=== PATIENT | female | born 1990 | race Caucasian/White ===

== ENCOUNTER 2016-06-13 09:39 | Inpatient (IN) | payer OTHER, MEDICAID ==
[2016-06-13] VITALS (10 sets, daily range): BP systolic 103–119; RESP 18–20; TEMP 97.9–98.5; Ht 165.1 cm; Wt 83.9 kg
[~2016-06-13] VITALS: Ht 165.1 cm; Wt 83.9 kg
[2016-06-13] MEDS ORDERED: LIDOCAINE 2% 5 ML IV ONE (09:51)
[2016-06-13] MEDS: LACT RINGERS 1,000 ML IV SCH ×2 (10:25→11:59)
[2016-06-13] MEDS ORDERED: FENTANYL 100 MCG/2 ML AMP ONE (10:36)
[2016-06-13] MEDS ORDERED: ROPIV/FENT 0.2%-2MCG/ML 100 ML EPIDURAL ONE (10:36)
[2016-06-13] MEDS ORDERED: LIDOCAINE 1% 30 ML PF ONE (10:38)
[2016-06-13] MEDS ORDERED: OXYTOCIN 15 UNITS/250 ML NS 500 ML IV ONE (10:39)
[2016-06-13] MEDS ORDERED: FAMOTIDINE 20 MG TAB PO PRN (10:45)
[2016-06-13] MEDS ORDERED: PROMETHAZINE 25 MG/ML VIAL IV PRN (10:45)
[2016-06-13] MEDS ORDERED: TERBUTALINE 1 MG/ML VIAL SUBQ PRN (10:45)
[2016-06-13] MEDS ORDERED: ONDANSETRON 4 MG VIAL IV PRN (10:45)
[2016-06-13] MEDS ORDERED: OXYTOCIN 15 UNITS/250 ML NS 250 ML IV SCH (10:45)
[2016-06-13] MEDS ORDERED: LIDOCAINE 1% 30 ML PF INFILTRATE ONE (10:45)
[2016-06-13] MEDS ORDERED: ALU/MAG/SIM 30 ML UDC PO PRN (10:45)
[2016-06-13] MEDS ORDERED: METOCLOPRAMIDE 10 MG/2 ML VIAL IV PUSH PRN (10:45)
[2016-06-13] MEDS ORDERED: MORPHINE 5 MG/1 ML VIAL IV PRN (10:45)
[2016-06-13] MEDS ORDERED: FAMOTIDINE 20 MG INJ IV PRN (10:45)
[2016-06-13] MEDS ORDERED: LIDOCAINE 1% BUFFERED 1 ML SYR INTRADERM PRN (10:45)
[2016-06-13] MEDS ORDERED: PHARMACY TO DOSE GENTAMICIN IV PRN (10:50)
[2016-06-13] MEDS ORDERED: CLINDAMYCIN 900 MG in DEXTROSE 5% 50 ML IV PRN (10:50)
[2016-06-13] MEDS ORDERED: SODIUM CHLORIDE 0.9% IV PRN (11:30)
[2016-06-13] MEDS ORDERED: GENTAMICIN IV PRN (11:30)
[2016-06-13] MEDS ORDERED: FENTANYL 100 MCG/2 ML AMP EPIDURAL ONE (11:45)
[2016-06-13] MEDS ORDERED: LACT RINGERS 500 ML IV PRN (11:45)
[2016-06-13] MEDS ORDERED: ROPIV/FENT 0.2%-2MCG/ML 100 ML EPIDURAL SCH (11:45)
[2016-06-13] MEDS ORDERED: LACT RINGERS 500 ML IV ONE (11:45)
[2016-06-13] MEDS ORDERED: SODIUM CHLORIDE 0.9% 500 ML IV PRN (11:45)
[2016-06-13] MEDS: MISOPROSTOL 200 MCG TAB PO SCH ×2 (16:00→18:16)
[2016-06-13] MEDS ORDERED: ZOLPIDEM 5 MG TAB PO PRN (16:15)
[2016-06-13] MEDS ORDERED: MAG HYDROX 30 ML UDC PO PRN (16:15)
[2016-06-13] MEDS ORDERED: DERMOPLAST SPRAY TOPICAL PRN (16:15)
[2016-06-13] MEDS ORDERED: TDaP 0.5 ML VIAL IM.VACC ONE (16:15)
[2016-06-13] MEDS ORDERED: OXYTOCIN 15 UNITS/250 ML NS 250 ML IV ONE (16:15)
[2016-06-13] MEDS ORDERED: MEASLES,MUMPS,RUBELLA VAC SUBQ.VACC ONE (16:15)
[2016-06-13] MEDS ORDERED: ASTRINGENT MED PADS 40'S TOPICAL PRN (16:20)
[2016-06-13] MEDS ORDERED: MISOPROSTOL 100 MCG TAB ONE (16:25)
[2016-06-13] MEDS: Ibuprofen 600 MG TAB PO SCH ×2 (18:16→23:12)
[2016-06-13] MEDS ORDERED: **ONLY ANESTEHSIA MAY ORDER OPIATES WHILE ON EPIDURAL XX SCH (20:00)
[2016-06-14 01:36] VITALS: BP_SYST 113; RESP 16; TEMP 97.6
[2016-06-14 05:12] VITALS: BP_SYST 108; RESP 16; TEMP 97.5
[2016-06-14] MEDS: Ibuprofen 600 MG TAB PO SCH ×4 (05:12→23:05)
[2016-06-14] MEDS: DOCUSATE SOD 100 MG CAP PO SCH (08:05)
[2016-06-14 09:43] VITALS: BP_SYST 116; RESP 18
[2016-06-14 09:44] VITALS: BP_SYST 109; RESP 16; TEMP 97.4; TEMP 97.8
[2016-06-14 13:51] VITALS: BP_SYST 116; RESP 14; TEMP 97.8
[2016-06-14 17:48] VITALS: BP_SYST 112; RESP 16; TEMP 98
[2016-06-15 05:20] VITALS: BP_SYST 111; TEMP 98.1
[2016-06-15 05:21] VITALS: RESP 16; TEMP 97.5
[2016-06-15] MEDS: Ibuprofen 600 MG TAB PO SCH ×2 (05:22→11:59)
[2016-06-15] MEDS: DOCUSATE SOD 100 MG CAP PO SCH (08:47)
[2016-06-15] MEDS ORDERED: MEASLES,MUMPS,RUBELLA VAC SUBQ.VACC ONE (08:52)
[2016-06-15 09:49] VITALS: BP_SYST 121; RESP 16; TEMP 97.7
[2016-06-15 10:10] VITALS: BP_SYST 121; RESP 16; TEMP 97.7
[2016-06-15 13:12] VITALS: BP_SYST 114; RESP 18; TEMP 97.9
== END 2016-06-15 15:11 | disposition home or self-care (01) | DRG 775 ==
LOC: LDOP 09:39 → LD 10:00 → OB 18:28
PROVIDERS: ADMIT Obstetrics & Gynecology Reproductive Endocrinology; ATTEND Obstetrics & Gynecology Reproductive Endocrinology
PROC: 10E0XZZ Delivery of Products of Conception, External Approach (ICD-10-PCS; principal; 2016-06-13)
PROC: 0KQM0ZZ Repair Perineum Muscle, Open Approach (ICD-10-PCS; 2016-06-13)
DX: O70.1 Second degree perineal laceration during delivery (principal); Z37.0 Single live birth; Z23 Encounter for immunization; Z3A.40 40 weeks gestation of pregnancy
CPT/HCPCS: 84112; 85025; 90707; 96372